=== PATIENT | male | born 1975 | race Caucasian/White ===

== ENCOUNTER 2017-01-15 21:02 | Emergency (ER) | payer MEDICARE, MEDICAID ==
[2017-01-15 21:21] VITALS: BP 146/71
[2017-01-15] MEDS ORDERED: Tetracaine HCl/PF 0.5% 4 ML Bottle EYERT ONE (21:22)
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
== END 2017-01-15 22:04 | disposition home or self-care (01) ==
LOC: JP.ED 21:02
DX: S05.8X1A Other injuries of right eye and orbit, initial encounter (principal); J45.909 Unspecified asthma, uncomplicated; K21.9 Gastro-esophageal reflux disease without esophagitis; F41.9 Anxiety disorder, unspecified; F32.9 Major depressive disorder, single episode, unspecified; Z88.8 Allergy status to other drugs, medicaments and biological substances; W46.0XXA Contact with hypodermic needle, initial encounter
CPT/HCPCS: 99283; A9270

== ENCOUNTER 2019-05-16 21:58 | Emergency (ER) | payer MEDICARE, MEDICAID ==
[2019-05-16 22:10] VITALS: BP 149/82; PULSE 78
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
[2019-05-17] MEDS ORDERED: Sulfamethoxazole/Trimethoprim 800-160 MG Tab PO ONE (02:24)
== END 2019-05-17 02:42 | disposition home or self-care (01) ==
LOC: JP.ED 21:58
DX: R31.0 Gross hematuria (principal); F17.210 Nicotine dependence, cigarettes, uncomplicated; K21.9 Gastro-esophageal reflux disease without esophagitis; F31.9 Bipolar disorder, unspecified; F41.9 Anxiety disorder, unspecified; Z79.899 Other long term (current) drug therapy; Z88.8 Allergy status to other drugs, medicaments and biological substances
CPT/HCPCS: 36415; 80048; 81001; 87086; 87088; 87186; 99283

== ENCOUNTER 2019-10-08 18:23 | Emergency (ER) | payer MEDICARE, MEDICAID ==
[2019-10-08 18:35] VITALS: BP 158/102; PULSE 89
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
--- NOTE | 2019-10-08 20:14 | CRLCR ---
INDICATION: Poked with wire, pain TECHNIQUE: Three views left thumb COMPARISON: None FINDINGS: Bones: Alignment is normal. No fractures or bone lesions. Joint spaces: Unremarkable. Soft tissues: Unremarkable. IMPRESSION: Negative. Dictated by Christopher Robles MD @ 10/08/2019 8:13:07 PM Dictated by: Christopher Robles MD @ 10/08/2019 20:13:14 (Electronically Signed)
== END 2019-10-08 19:58 | disposition home or self-care (01) ==
LOC: JP.ED 18:23
DX: L03.012 Cellulitis of left finger (principal); F17.210 Nicotine dependence, cigarettes, uncomplicated; Z88.8 Allergy status to other drugs, medicaments and biological substances; Z79.899 Other long term (current) drug therapy
CPT/HCPCS: 73140-FA; 99283; 99283-25

== ENCOUNTER 2019-10-09 18:49 | Observation (INO) | payer MEDICARE, MEDICAID ==
[2019-10-09] MEDS ORDERED: Bupivacaine 0.5% 50 ML MDV INFILT ONE (19:18)
[2019-10-09] MEDS ORDERED: Bupivacaine 0.5% 10 ML SDV INJECT ONE (19:32)
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
[2019-10-09] MEDS ORDERED: ClonazePAM 1 MG Tab PO PRN (22:26)
[2019-10-09] MEDS ORDERED: Acetaminophen 325 MG Tab PO PRN (22:26)
--- NOTE | 2019-10-10 00:07 | HP ---
IDENTIFYING DATA: Robson Poole is a 43-year-old single male from [place]. CHIEF COMPLAINT: Left hand pain. HISTORY OF PRESENT ILLNESS: Adult male who was on chronic social security disability secondary to lumbar back disease and bipolar affective disorder engages in routine activities with craft work including production of dream catchers and wood benches. He sustained a puncture wound with a clean wire to the tip of the left thumb approximately 4 days ago. Subsequently, had a nail puncture on the dorsum of the left 3rd finger as well. Yesterday, he was found to have evidence of developing cellulitis with inflammation and soft tissue swelling and was placed on antibiotic therapy after emergency room visit. He returned today with increasing swelling and pain in the nondominant left hand. He is admitted for ongoing parenteral antibiotic therapy with IV vancomycin. He has had no fevers, chills, headaches, weakness, nausea, or abdominal upset. No respiratory symptoms noted. PAST MEDICAL HISTORY: PREVIOUS SURGERIES: Include repair of hand laceration and lumbar spine surgery 4 to 5 years ago. No other hospitalizations reported. He does have a recognized history of bipolar affective disorder and follows with [facility] routinely. ALLERGIES: REPORTED TO DIPHENHYDRAMINE AND HYDROCODONE. CURRENT MEDICATIONS: Adderall XR 30 mg q.a.m., Adderall 20 mg t.i.d. p.r.n., clonazepam 1 mg at bedtime and daily p.r.n. anxiety, Seroquel 25 mg at bedtime p.r.n. agitation. HABITS: Tobacco use of 7 cigarettes daily. Does use soft drinks. Denies other illicit drug use. SOCIAL HISTORY: Resides in independent dwelling with roommates. Performs ADLs without assistance. FAMILY HISTORY: Noncontributory. No recent acute infectious illnesses. REVIEW OF SYSTEMS: NEUROLOGIC: History of bipolar affective disorder with pharmacologic therapy, managed by [facility]. CONSTITUTIONAL: No history of headaches, glaucoma, cataracts, or neuropathy. CARDIAC: Denies a history of hypertension, diabetes, congenital heart disease, murmur, chest pain, palpitations, or CT. RESPIRATORY: Reports a history of childhood asthma. No current wheeze, shortness of breath, cough, or chronic sputum production. Tobacco use is gradually decreasing, currently at 7 cigarettes daily. GASTROINTESTINAL: Denies chronic dyspepsia, hepatitis, jaundice, gallbladder disease, or bowel changes. GENITOURINARY: No history of chronic renal disease or UTIs. MUSCULOSKELETAL: Low back stiffness with previous lumbar spine surgery. No other chronic arthralgias. PHYSICAL EXAMINATION: GENERAL: Appearance is that of an adult male in no acute distress. INITIAL VITALS: Temperature 98 degrees Fahrenheit, pulse rate 99, respiratory rate 20, blood pressure 170/85 with O2 sats 97% on room air. HEENT: Hearing is intact. No facial asymmetry. Speech is clear. Extraocular eye movements are symmetrical. Sclerae anicteric. No oropharyngeal lesions. NECK: Brisk carotid pulses. No bruits or stridor. LUNGS: Symmetrical, clear, resonant. HEART: Regular without murmurs or gallops noted. ABDOMEN: Nontender, nondistended. No organomegaly. Active sounds. Good femoral pulses. No abdominal bruits. EXTREMITIES: No pitting edema in the lower extremities. No open skin lesions. Good radial and posterior tibial pulses with brisk capillary refill. Upper extremities show a puncture wound at the distal palmar pad of the left thumb as well as a puncture wound at the mid phalanx of the left 3rd finger. He has surrounding soft tissue swelling, induration, erythema, and stiffness with flexion and extension of the digits. Mild palpable tenderness not extending proximal to the wrist. Good range of motion at the wrist and elbow noted. Brisk capillary refill. LABORATORY DATA: On admission, WBC 11, hemoglobin 12.6, platelet count 355,000 with 72 segs, 19 lymphocytes, 8 monos. Sodium 136, potassium 3.8, BUN 15, creatinine 1, GFR greater than 60, glucose 130. Gram stain from wound aspirate reveals gram-positive cocci. Culture and sensitivities are pending. IMPRESSION: 1. Progressive cellulitis of the left hand secondary to puncture wound. 2. Bipolar affective disorder with pharmacologic therapy. 3. Noted allergies reported to diphenhydramine and hydrocodone. PLAN: Wound cultures have been obtained. The patient will receive 1st dose of IV vancomycin this evening with repeat dose in the a.m. Await wound culture results to determine ongoing antibiotic therapy. Will offer oral analgesics in the form of simple Tylenol or oxycodone with acetaminophen for more significant discomfort. Allow standard diet. Full code status. Routine vitals, and anticipate discharge home in 24 to 48 hours of showing interval improvement in inflammatory changes of the hands. Note that tetanus status is current. Does not receive annual influenza vaccines. Does have assistance available in the household at time of discharge. Dwayne Sandoval MD /[id number]
[2019-10-10] MEDS: Acetaminophen/oxyCODONE 325-5 MG Tab PO PRN ×5 (04:38→22:11)
[2019-10-10] MEDS ORDERED: Vancomycin 1 GM SDV IV SCH (06:00)
--- NOTE | 2019-10-10 06:47 | PN ---
DATE OF SERVICE: 10/10/2019 SUBJECTIVE: A 43-year-old male who was admitted with cellulitic changes of the left hand following puncture wounds to the dorsum of the left 3rd finger and tip of the left thumb. He had ongoing induration, swelling, and pain without noted fever. IV vancomycin was provided in the emergency room with ongoing parenteral antibiotic therapies noted. He rested reasonably comfortably through the night. Mild discomfort was managed with the use of Percocet as a single dose. He has had no fevers, chills, headaches, or myalgias. No other complaints offered. OBJECTIVE: VITAL SIGNS: Temperature 36.1, pulse rate 72, blood pressure 124/76, respiratory rate 18, with stable O2 saturations. EXTREMITIES: He has ongoing soft tissue swelling and inflammation over the dorsum of the digits and hand of the left upper extremity, stiffness with reduced grasp strength is noted. Normal sensation in the fingertips. No new open lesions are noted. No inflammatory changes extending proximal to the wrist. He has good flexion and extension at the wrist. IMPRESSION AND PLAN: Cellulitic changes of the left hand, 2nd dose of IV vancomycin to be administered this morning. Wound cultures have been obtained on admission and are pending. We will continue to provide parenteral antibiotic therapy, analgesics, and standard diet as tolerated. Consider discharge to home when acute inflammatory response is beginning to show reversal and improvement with anticipated transition to oral antibiotic therapy at that time. Dwayne Sandoavl MD /[id number]
[2019-10-10] MEDS: Amphetamine/Dextroamphetamine Salts 10 MG Cap.ER PO SCH (09:11)
[2019-10-10] MEDS ORDERED: Amphetamine/Dextroamphetamine Salts 10 MG Tab PO SCH (12:00)
--- NOTE | 2019-10-10 12:34 | CRLCT ---
HISTORY: Pain and swelling with history of puncture wound. FINDINGS: The hand was studied in the short axis. Sagittal and coronal 2 dimensional reconstructions were then performed. There is increased density in the subcutaneous fat throughout the hand especially dorsally presumably representing edema. No definite findings for fluid collection on this noncontrast study to suggest abscess. No soft tissue gas or foreign body is noted. No findings for fracture or dislocation. IMPRESSION: Soft tissue swelling. No definite findings for abscess on this noncontrast study. Please note that all CT scans at this facility use dose modulation, iterative reconstruction, and/or weight-based dosing when appropriate to reduce radiation dose to as low as reasonably achievable. Dictated by Denver Nash MD @ Oct 10 2019 2:51PM Signed by Dr. Denver Nash @ Oct 10 2019 2:54PM
[2019-10-10] MEDS: Amphetamine/Dextroamphetamine Salts 10 MG Tab PO SCH (16:32)
[2019-10-11] MEDS: Amphetamine/Dextroamphetamine Salts 10 MG Tab PO SCH (07:59)
[2019-10-11] MEDS: Amphetamine/Dextroamphetamine Salts 10 MG Cap.ER PO SCH (08:00)
[2019-10-11] MEDS: Acetaminophen/oxyCODONE 325-5 MG Tab PO PRN (08:00)
[2019-10-11 08:09] VITALS: BP 114/75; PULSE 71
--- NOTE | 2019-10-11 09:27 | PCM.DCSUM1 ---
Discharge Summary - Hospital Course HPI Initial Comments: 43-year-old male with history of attention deficit disorder and recent antibiotic initiation for cellulitis of the left hand who presented with worsening redness, warmth, pain and swelling of the left hand. He was admitted for management of cellulitis worsening despite outpatient antibiotics. Brief History: 43-year-old male with history of attention deficit disorder and recent diagnosis of cellulitis of the left hand who presented with redness, warmth and pain involving the left hand. He was admitted for management of cellulitis that was worsening despite outpatient antibiotic therapy. Diagnosis: Stroke: No - Discharge Data Discharge Date: 10/11/19 Discharge Disposition: Home, Self-Care 01 Condition: Good - Referral to Home Health Primary Care Physician: PCP None - Discharge Diagnosis/Problem(s) (1) Cellulitis of hand, left SNOMED Code(s): 44430745 ICD Code: L03.114 - CELLULITIS OF LEFT UPPER LIMB Status: Acute (2) Cellulitis of thumb, left SNOMED Code(s): 80265539647728845 ICD Code: L03.012 - CELLULITIS OF LEFT FINGER Status: Acute - Patient Summary/Data Hospital Course: Robson presented to the emergency room with worsening pain, redness and swelling of the left hand despite being on antibiotics for cellulitis. There is no evidence for sepsis in the emergency room. Culture was obtained and he was started on vancomycin and admitted to the hospital for further management. Over the next couple of days we did see steady improvement in the redness and swelling of the hand. His pain has diminished. I did get a CT the morning after admission to rule out abscess or subcutaneous fluid collection and there was no evidence for either of these. His culture that was obtained in the emergency room did grow out a beta strep group a. Patient is doing well and feeling well and I believe he is safe for discharge at this time. He will be transitioned to Augmentin for antibiotic coverage. He will be establishing care with [facility] - Patient Instructions Diet: Regular Diet as Tolerated Activity: As Tolerated Driving: Do Not Drive (If you are taking pain pills) Showering/Bathing: May Shower Notify Provider of: Fever, Increased Pain, Swelling and Redness, Drainage Other/Special Instructions: 1. You were in the hospital for management of cellulitis involving your left hand with wounds on your thumb and middle finger. Cultures were obtained in the emergency room and these did grow out a Streptococcus bacteria. I recommend ongoing antibiotic therapy with Augmentin. You should take 1 tablet twice daily with food for 7 days. Your first dose outside of the hospital will be due tonight (9 am and 9 pm). 2. Continue your other home medications as previously prescribed. - Discharge Plan *PRESCRIPTION DRUG MONITORING PROGRAM REVIEWED*: Not Applicable *COPY OF PRESCRIPTION DRUG MONITORING REPORT IN PATIENT GUZMAN: Not Applicable Prescriptions/Med Rec: Amoxicillin/Clavulanate K [Augmentin 875-125 MG] 1 tab PO BID #14 tablet oxyCODONE 5 mg PO Q4H PRN #8 tab PRN Reason: Pain Home Medications: Home Meds Dextroamphetamine/Amphetamine [Adderall 20 mg Tablet] 20 mg PO TID 03/16/16 [ History] Dextroamphetamine/Amphetamine [Adderall] 30 mg PO DAILY 03/16/16 [History] QUEtiapine [SEROquel] 25 mg PO DAILY PRN 03/16/16 [History] clonazePAM [Klonopin] 1 mg PO BID PRN 10/08/19 [History] Amoxicillin/Clavulanate K [Augmentin 875-125 MG] 1 tab PO BID #14 tablet [Rx] oxyCODONE 5 mg PO Q4H PRN #8 tab 10/11/19 [Rx] Oxygen Therapy Mode: Room Air Patient Handouts: Amoxicillin; Clavulanic Acid tablets, Cellulitis, Adult Referrals: Mk Soni MD [Physician] - (1-2 weeks - f/u hospital stay for cellulitis of the left hand and establish care) - Discharge Summary/Plan Comment DC Time >30 min.: No - Patient Data Vitals - Most Recent: Last Vital Signs Temp 36.2 C 10/11/19 08:08 Pulse 71 10/11/19 08:08 Resp 16 10/11/19 08:08 BP 114/75 10/11/19 08:08 Pulse Ox 97 10/11/19 08:08 Weight - Most Recent: 80.739 kg I&O - Last 24 hours: Intake & Output 10/10/19 10/11/19 10/11/19 22:59 06:59 14:59 Intake Total 600 250 250 Balance 600 250 250 Lab Results - Last 24 hrs: Laboratory Results - last 24 hr 10/11/19 10/11/19 Range/Units 05:41 05:41 WBC 6.7 (4.5-11.0) K/uL RBC 4.63 (4.30-5.90) M/uL Hgb 13.7 (12.0-15.0) g/dL Hct 42.0 (40.0-54.0) % MCV 91 (80-98) fL MCH 30 (27-31) pg MCHC 33 (32-36) % Plt Count 390 (150-400) K/uL Sodium 136 L (140-148) mmol/L Potassium 4.2 (3.6-5.2) mmol/L Chloride 103 (100-108) mmol/L Carbon Dioxide 28 (21-32) mmol/L Anion Gap 9.2 (5.0-14.0) mmol/L BUN 13 (7-18) mg/dL Creatinine 0.9 (0.8-1.3) mg/dL Est Cr Clr Drug Dosing 111.56 mL/min Estimated GFR (MDRD) > 60 (>60) Glucose 98 (74-106) mg/dL Calcium 8.7 (8.5-10.1) mg/dL C-Reactive Protein 2.22 H (0.0-0.3) mg/dL KODY Results - Last 24 hrs: Microbiology 10/09/19 20:32 Gram Stain - Final Finger, Left Wound Culture - Final Beta Streptococcus Group A Med Orders - Current: Current Medications Acetaminophen (Tylenol) 650 mg PO Q4H PRN PRN Reason: Pain Amphetamine/Dextroamphetamine (Adderall Xr) 30 mg PO QAM [facility] Last Admin: 10/11/19 08:00 Dose: 30 mg Amphetamine/Dextroamphetamine (Adderall) 20 mg PO 0800,1200,1600 [facility] Last Admin: 10/11/19 07:59 Dose: 20 mg Clonazepam (Klonopin) 1 mg PO BID PRN PRN Reason: Anxiety Last Admin: 10/10/19 22:09 Dose: 1 mg Vancomycin HCl 1.25 gm/ Sodium (Chloride) 250 mls @ 166.667 mls/hr IV Q12H [facility] Last Admin: 10/11/19 08:00 Dose: 166.667 mls/hr Oxycodone/Acetaminophen (Percocet 325-5 Mg) 1 tab PO Q4H PRN PRN Reason: Pain Last Admin: 10/11/19 08:00 Dose: 1 tab Discontinued Medications Amphetamine/Dextroamphetamine (Adderall) 20 mg PO 1200,1600 [facility] Last Admin: 10/10/19 12:40 Dose: 20 mg Bupivacaine HCl (Marcaine 0.5%) 50 ml INFILT ONETIME ONE Stop: 10/09/19 19:19 Last Admin: 10/09/19 19:56 Dose: Not Given Bupivacaine HCl (Sensorcaine-Mpf 0.5%) 10 ml INJECT ONETIME ONE Stop: 10/09/19 19:33 Last Admin: 10/09/19 19:38 Dose: 10 ml Vancomycin HCl 1 gm/ Sodium (Chloride) 250 mls @ 150 mls/hr IV ONETIME ONE Stop: 10/09/19 22:09 Last Admin: 10/09/19 20:43 Dose: 150 mls/hr Vancomycin HCl (Vancomycin) 0 gm IV .PHARMACY TO DOSE [facility] Stop: 10/10/19 06:01 - Exam General: Reports: Alert, Oriented, Cooperative, No Acute Distress GI/Abdominal Exam: Soft, No Distention Extremities: Increased Warmth (mild, dorsum left hand. Mild swelling left hand. ) Psy/Mental Status: Reports: Alert, Normal Affect
== END 2019-10-11 10:06 | disposition home or self-care (01) ==
LOC: JP.ED 18:49 → JP.MS 20:35
PROVIDERS: ADMIT Family Medicine; ATTEND Internal Medicine
DX: L03.012 Cellulitis of left finger (principal); S61.032D Puncture wound without foreign body of left thumb without damage to nail, subsequent encounter; S61.33 Puncture wound without foreign body of finger with damage to nail; F31.9 Bipolar disorder, unspecified; F98.8 Other specified behavioral and emotional disorders with onset usually occurring in childhood and adolescence; F17.210 Nicotine dependence, cigarettes, uncomplicated; W26.8XXD Contact with other sharp object(s), not elsewhere classified, subsequent encounter; Z88.8 Allergy status to other drugs, medicaments and biological substances; Z88.5 Allergy status to narcotic agent; Z79.899 Other long term (current) drug therapy
CPT/HCPCS: 10060; 26010; 36415; 73200; 80048; 85025; 85027; 86140; 87070; 87077; 87205; 96365; 96366; 99283; 99284; A9270; G0378; J3370; J3490; J7050

== ENCOUNTER 2019-11-21 20:28 | Emergency (ER) | payer MEDICARE, MEDICAID ==
--- NOTE | 2019-11-21 21:06 | EDM.PDOCBH ---
ED HPI GENERAL MEDICAL PROBLEM - General Chief Complaint: Behavioral/Psych Stated Complaint: EVAL Time Seen by Provider: 11/21/19 20:30 Source of Information: Reports: Patient History Limitations: Reports: No Limitations - History of Present Illness INITIAL COMMENTS - FREE TEXT/NARRATIVE: 43-year-old male brought in by police with acute reactive depression. He has lost several family members over the past 2 years, and found out yesterday that his girlfriend has apparently a terminal cardiac condition. He felt hopeless today, and somehow the police were contacted by a friend that they were worried about him so they brought him in. He does not have any particular plans for self-harm. He does not believe he could hurt himself, he feels he needs to be there for his girlfriend. My initial thought was he does need an evaluation. Onset: Unknown/Unsure (Marked increase in depression over the past 48 hours) - Related Data Allergies Allergy/AdvReac Type Severity Reaction Status Date / Time diphenhydramine HCl Allergy Seizure Verified 11/21/19 20:52 [From Benadryl] hydrocodone Allergy Rash Verified 11/21/19 20:52 Home Meds: Home Meds Dextroamphetamine/Amphetamine [Adderall 20 mg Tablet] 20 mg PO TID 03/16/16 [ History] Dextroamphetamine/Amphetamine [Adderall] 30 mg PO DAILY 03/16/16 [History] QUEtiapine [SEROquel] 25 mg PO DAILY PRN 03/16/16 [History] clonazePAM [Klonopin] 1 mg PO BID PRN 10/08/19 [History] Past Medical History HEENT History: Reports: Impaired Vision Respiratory History: Reports: Asthma Gastrointestinal History: Reports: GERD Genitourinary History: Reports: Renal Calculus Musculoskeletal History: Reports: Fracture Neurological History: Reports: Concussion, Head Trauma, Seizure Psychiatric History: Reports: ADHD, Addiction, Anxiety, Bipolar, Depression, Panic Attack, Psych Hospitalization(s), Suicide Attempt, Suicidal Ideation - Infectious Disease History Infectious Disease History: Reports: Chicken Pox - Past Surgical History Neurological Surgical History: Reports: Other (See Below) Other Neurological Surgeries/Procedures: surgery for sciatic nerve issues Social & Family History - Family History Family Medical History: Unobtainable - Caffeine Use Caffeine Use: Reports: Soda ED ROS GENERAL - Review of Systems Review Of Systems: See Below Constitutional: Denies: Fever, Chills Respiratory: Denies: Shortness of Breath Cardiovascular: Denies: Chest Pain GI/Abdominal: Denies: Nausea, Vomiting Neurological: Denies: Headache ED EXAM, BEHAVIORAL HEALTH - Physical Exam Exam: See Below Exam Limited By: No Limitations General Appearance: Alert, No Apparent Distress Head: Atraumatic Respiratory/Chest: No Respiratory Distress, Lungs Clear Cardiovascular: Regular Rate, Rhythm Neurological: Alert Psychiatric: Depressed Mood, Tearful Skin Exam: Warm, Dry COURSE, BEHAVIORAL HEALTH COMP - Course Vital Signs: Last Vital Signs Temp 97.3 F 11/21/19 21:11 Pulse 76 11/21/19 21:11 Resp 14 11/21/19 21:11 BP 143/76 H 11/21/19 21:11 Pulse Ox 96 11/21/19 21:11 Re-Assessment/Re-Exam: Arrangements are being made for a psychiatric evaluation, however a family member or friend called him and agreed to take responsibility for him. The patient himself is feeling much better after being contacted by the significant other. He promised to recheck on Saturday if not improving, but the plans were to be picked up by his friend and they were going to go [facility] to be with his girlfriend for treatment. He was discharged with no intention of self-harm. Departure - Departure Time of Disposition: 21:24 Disposition: Home, Self-Care 01 Clinical Impression: Depressive disorder, Bipolar disorder - Discharge Information Instructions: Living With Depression Referrals: PCP,None [Primary Care Provider] - Forms: ED Department Discharge Care Plan Goals: Continue your current medications, stay with family and friends as much as possible over the next several weeks. Sepsis Event Note - Focused Exam Vital Signs: Vital Signs Temp Pulse Resp BP Pulse Ox 11/21/19 21:11 97.3 F 76 14 143/76 H 96 Date Exam was Performed: 11/21/19 Time Exam was Performed: 21:26
[2019-11-21 21:12] VITALS: BP 143/76; PULSE 76
== END 2019-11-21 21:24 | disposition home or self-care (01) ==
LOC: JP.ED 20:28
DX: F32.9 Major depressive disorder, single episode, unspecified (principal); F41.0 Panic disorder [episodic paroxysmal anxiety]; Z88.8 Allergy status to other drugs, medicaments and biological substances; Z88.5 Allergy status to narcotic agent; Z79.899 Other long term (current) drug therapy
CPT/HCPCS: 99284